=== PATIENT | male | born 1940 | race Caucasian/White ===

== ENCOUNTER 2022-10-27 07:14 | Inpatient (IN) | payer MEDICARE, MEDICAID ==
[2022-10-27] VITALS (13 sets, daily range): BP systolic 89–131; BP diastolic 50–72
[~2022-10-27] VITALS: Ht 165.1 cm; Wt 67.8 kg
[2022-10-27] MEDS ORDERED: ASPIRIN/SOD BICARB/CITRIC ACID 324MG TAB EFF ONE (07:29)
[2022-10-27] MEDS ORDERED: ASPI81TA47 PO (08:00)
[2022-10-27] MEDS ORDERED: PANT40TA51 MT (08:00)
[2022-10-27] MEDS ORDERED: EFEX1 PO (08:01)
[2022-10-27] MEDS ORDERED: DULA1.5P SQ (08:04)
[2022-10-27] MEDS ORDERED: NEBI2.5T2 MT (08:04)
[2022-10-27] MEDS ORDERED: SIMV-43 MT (08:04)
[2022-10-27] MEDS ORDERED: SODI5POW2 PO (08:04)
[2022-10-27] MEDS ORDERED: LINA5TAB MT (08:04)
[2022-10-27] MEDS ORDERED: LEVVL SQ (08:04)
[2022-10-27] MEDS ORDERED: IODIXANOL 320MG/ML 100 ML BOTTLE IV ONE (08:15)
[2022-10-27] MEDS ORDERED: HEPARIN 1000 UNITS/ML 10ML ONE (08:15)
[2022-10-27] MEDS ORDERED: MIDAZOLAM HCL 2 MG/2 ML VIAL ONE (08:16)
[2022-10-27] MEDS ORDERED: FENTANYL CITRATE/PF 50MCG/ML 2ML VIAL ONE (08:16)
[2022-10-27] MEDS ORDERED: LIDOCAINE HCL 1% 20ML VIAL (Pyxis) INJ ONE (08:17)
[2022-10-27] MEDS ORDERED: HYDRALAZINE 20MG/ML VIAL ONE (08:57)
[2022-10-27] MEDS ORDERED: CLOPIDOGREL 75MG TABLET ONE (09:01)
[2022-10-27] MEDS: CLOPIDOGREL 75MG TABLET PO NR (09:01)
[2022-10-27] MEDS ORDERED: ONDANSETRON HCL 4MG/2ML INJ IV PRN (10:30)
[2022-10-27] MEDS ORDERED: ACETAMINOPHEN 325MG TABLET PO PRN (10:30)
[2022-10-27] MEDS ORDERED: ATROPINE SULFATE 1MG/10ML SYR IV PRN (10:30)
[2022-10-27] MEDS ORDERED: MORPHINE SULFATE 2 MG/ML CPJ (NOT FOR IM USE) IV PRN (10:30)
[2022-10-27] MEDS ORDERED: DEXTROSE 50% WATER 50ML SYRINGE IV PRN (10:45)
[2022-10-27] MEDS: BLOOD SUGAR DIAGNOSTIC STRIP TEST SCH ×3 (12:58→21:07)
[2022-10-27] MEDS ORDERED: NALOXONE HCL 0.4MG/ML VIAL IV PRN (14:30)
[2022-10-27] MEDS ORDERED: SODIUM CHLORIDE 0.45% 1,000 ML IV ONE (15:00)
[2022-10-27 16:26] LABS: BASOPHILS % 0.2 % (0.0-2.0); EOSINOPHILS % 0.7 % (0.0-5.0); HEMATOCRIT. 36.2 % (42.0-52.0); HEMOGLOBIN. 11.7 g/dL (14.0-18.0); LYMPHOCYTES % 36.7 % (20.0-50.0); MEAN CORPUSCULAR HEMOGLOBIN 25.8 pg (28.0-32.0); MEAN CORPUSCULAR VOLUME 79.7 fL (80.0-94.0); MEAN PLATELET VOLUME 8.6 fl (7.4-10.4); MONOCYTES % 9.4 % (2.0-8.0); PLATELET 100 x1000/uL (130-400); RED BLOOD CELL COUNT 4.54 mill/uL (4.7-6.1); RED CELL DISTRIBUTION WIDTH 16.6 % (11.6-14.6)
[2022-10-27] MEDS: INSULIN LISPRO 100 UNITS/ML SUBCUT SCH ×2 (17:20→21:13)
[2022-10-28] VITALS: BP 136/68
[2022-10-28 04:00] VITALS: BP 144/82
[2022-10-28 05:36] LABS: BASOPHILS % 0.2 % (0.0-2.0); EOSINOPHILS % 0.8 % (0.0-5.0); HEMATOCRIT. 32.9 % (42.0-52.0); HEMOGLOBIN. 10.8 g/dL (14.0-18.0); MEAN CORPUSCULAR HEMOGLOBIN 25.7 pg (28.0-32.0); MEAN CORPUSCULAR VOLUME 78.2 fL (80.0-94.0); MEAN PLATELET VOLUME 8.9 fl (7.4-10.4); MONOCYTES % 8.7 % (2.0-8.0); NEUTROPHILS % 59.3 % (40.0-76.0); PLATELET 95 x1000/uL (130-400); RED BLOOD CELL COUNT 4.21 mill/uL (4.7-6.1); RED CELL DISTRIBUTION WIDTH 16.5 % (11.6-14.6)
[2022-10-28] MEDS: BLOOD SUGAR DIAGNOSTIC STRIP TEST SCH (06:50)
[2022-10-28] MEDS: CLOPIDOGREL 75MG TABLET PO NR (08:21)
[2022-10-28 08:25] VITALS: BP 164/84
[2022-10-28] MEDS: INSULIN LISPRO 100 UNITS/ML SUBCUT SCH (08:27)
[2022-10-28] MEDS ORDERED: CLOPIDOGREL 75MG TABLET PO SCH (09:00)
[2022-10-28] MEDS ORDERED: NEBIVOLOL HCL 5 MG TABLET PO SCH (09:00)
[2022-10-28] MEDS ORDERED: ASPIRIN 81MG TABLET PO SCH (09:00)
[2022-10-28 10:15] VITALS: BP 164/84
[2022-11-10] MEDS ORDERED: MONT-39 PO (16:33)
[2022-11-10] MEDS ORDERED: CLOP75TA33 PO (16:33)
[2022-11-10] MEDS ORDERED: INSU100I20 SQ ×2 (16:33)
== END 2022-10-28 12:40 | disposition home or self-care (01) | DRG 254 ==
LOC: CCL 07:14 → 3WST 14:02
PROVIDERS: ADMIT Specialist; ATTEND Specialist
PROC: 047S3Z1 Dilation of Left Posterior Tibial Artery using Drug-Coated Balloon, Percutaneous Approach (ICD-10-PCS; principal; 2022-10-27)
PROC: B41F1ZZ Fluoroscopy of Right Lower Extremity Arteries using Low Osmolar Contrast (ICD-10-PCS; 2022-10-27)
DX: I70.202 Unspecified atherosclerosis of native arteries of extremities, left leg (principal); E78.5 Hyperlipidemia, unspecified; N18.9 Chronic kidney disease, unspecified; I70.291 Other atherosclerosis of native arteries of extremities, right leg; I25.10 Atherosclerotic heart disease of native coronary artery without angina pectoris; Z79.899 Other long term (current) drug therapy; Z79.82 Long term (current) use of aspirin; Z79.84 Long term (current) use of oral hypoglycemic drugs; Z86.718 Personal history of other venous thrombosis and embolism
CPT/HCPCS: 36415; 37228; 75710; 80048; 82962; 85025; 85347; 93005; C1725; C1726; C1760; C1769; C1893; C1894; J0360; J1644; J1815; J2250; J3010; J3490; Q9967

== ENCOUNTER 2022-11-11 05:44 | Day surgery (SDC) | payer MEDICARE, MEDICAID ==
[~2022-11-11] VITALS: Ht 167.6 cm; Wt 63.5 kg
[~2022-11-11 05:44] MED LIST: ASPI81TA47 PO; CLOP75TA33 PO; DULA1.5P SQ; EFEX1 PO; INSU100I20 SQ; LINA5TAB MT; MONT-39 PO; NEBI2.5T2 MT; PANT40TA51 MT; SIMV-43 MT
[2022-11-11] MEDS ORDERED: SODIUM CHLORIDE 0.9% 1,000 ML IV SCH (06:40)
[2022-11-11] MEDS ORDERED: VANCOMYCIN HCL 1 GM/VIAL ONE (07:12)
[2022-11-11] MEDS ORDERED: LIDOCAINE HCL 1% 10 MG/ML 10ML VIAL ONE (07:13)
[2022-11-11] MEDS ORDERED: BUPIVACAINE HCL/PF 0.5% (5MG/ML) 10ML ONE (07:13)
[2022-11-11] MEDS ORDERED: POLYMYXIN B SULFATE 500000 UNITS/VIAL ONE (07:14)
[2022-11-11] MEDS ORDERED: INSULIN REGULAR (HUMULIN R) 300UNITS/3ML VIAL IV SCH (07:30)
[2022-11-11] MEDS ORDERED: INSULIN REGULAR (HUMULIN R) 300UNITS/3ML VIAL ONE (07:30)
[2022-11-11] MEDS ORDERED: PROPOFOL 10MG/ML 100ML 100 ML IV ONE (07:55)
[2022-11-11] MEDS ORDERED: ACETAMINOPHEN 500MG TABLET ONE (08:08)
[2022-11-11] MEDS ORDERED: GENTAMICIN SULF 40MG/ML 2ML VIAL ONE (08:28)
[2022-11-11] MEDS ORDERED: FENTANYL CITRATE/PF 50MCG/ML 2ML VIAL ONE (08:41)
[2022-11-11] MEDS ORDERED: ONDANSETRON HCL 4MG/2ML INJ ONE (08:46)
[2022-11-11] MEDS ORDERED: PHENYLEPHRINE HCL 10 MG/ML 1ML (IV VIAL) IV ONE (08:47)
== END 2022-11-11 11:15 | disposition home or self-care (01) ==
LOC: OR 05:44
PROVIDERS: ATTEND Podiatrist Foot & Ankle Surgery
DX: I96 Gangrene, not elsewhere classified (principal); I12.9 Hypertensive chronic kidney disease with stage 1 through stage 4 chronic kidney disease, or unspecified chronic kidney disease; E11.22 Type 2 diabetes mellitus with diabetic chronic kidney disease; N18.4 Chronic kidney disease, stage 4 (severe); E78.00 Pure hypercholesterolemia, unspecified; F32.9 Major depressive disorder, single episode, unspecified; I25.10 Atherosclerotic heart disease of native coronary artery without angina pectoris; K21.9 Gastro-esophageal reflux disease without esophagitis; Z79.82 Long term (current) use of aspirin; Z79.84 Long term (current) use of oral hypoglycemic drugs; Z79.899 Other long term (current) drug therapy; Z98.890 Other specified postprocedural states; Z20.822 Contact with and (suspected) exposure to COVID-19
CPT/HCPCS: 28820; 82962; 87070; 87075; 87077; 87186; 87205; 87426; 88304; 88311; A4217; C9803; J1580; J1815; J2370; J2405; J2704; J3010; J3370; J3490; Z7610